=== PATIENT | female | born 1975 | race Caucasian/White ===

== ENCOUNTER 2023-02-10 08:33 | Outpatient (CLI) | payer OTHER, SELFPAY ==
--- NOTE | 2023-02-10 08:47 | XRR_ITS ---
PROCEDURE INFORMATION: Exam: XR Right Hip Exam date and time: 02/10/2023 8:57 AM Age: 47 years old Clinical indication: Hip pain; Right hip; Additional info: M25.551 - pain in right hip TECHNIQUE: Imaging protocol: Radiologic exam of the right hip. Views: 1 view hip with pelvis when performed. COMPARISON: No relevant prior studies available. FINDINGS: Bones/joints: Unremarkable. No acute fracture. Soft tissues: Unremarkable. XR/XR hip RT 2-3V wo/w pel* [id number] IMPRESSION: No significant abnormality.
== END 2023-02-10 08:34 | disposition home or self-care (01) ==
LOC: RAD 08:37
PROVIDERS: PCP Nurse Practitioner Family; Visit Provider Nurse Practitioner Family
DX: M25.551 Pain in right hip (principal)
CPT/HCPCS: 73502

== ENCOUNTER → 2023-06-05 10:21 | Outpatient (BNVA) | payer OTHER, SELFPAY | PROVIDERS: PCP Nurse Practitioner Family; Visit Provider Nurse Practitioner Family | DX: R53.83 Other fatigue (principal); N95.1 Menopausal and female climacteric states; F41.9 Anxiety disorder, unspecified | CPT/HCPCS: 80053; 82672; 83550; 84144; 84403; 84439; 84443; 84481; 85025 ==

== ENCOUNTER 2024-03-10 11:36 | Outpatient (CLI) | payer BC, SELFPAY ==
[2024-03-10 12:26] LABS: Ferritin 47 ng/mL (15-150); Iron 70 ug/dL (37-145); Percent Saturation 25.2 % (20-50); Total Iron Binding Capacity 277 mcg/dl; Transferrin 258 mg/dL (200-360); Unsaturated Iron Binding 207 ug/dL (112-347)
== END 2024-03-10 11:37 | disposition home or self-care (01) ==
LOC: LAB 11:37
PROVIDERS: PCP Nurse Practitioner Family; Visit Provider Dermatology
DX: L30.9 Dermatitis, unspecified (principal)
CPT/HCPCS: 36415; 82728; 83540; 83550; 84466

== ENCOUNTER → 2024-10-10 07:38 | Outpatient (BNVA) | payer BC, SELFPAY | PROVIDERS: PCP Nurse Practitioner Family; Visit Provider Nurse Practitioner Family | DX: N92.1 Excessive and frequent menstruation with irregular cycle (principal); R53.83 Other fatigue | CPT/HCPCS: 80053; 80061; 82672; 84144; 84403; 84439; 84443; 85025; 87070; 87205; 88175 ==

== ENCOUNTER 2024-11-11 09:58 | Outpatient (CLI) | payer BC, SELFPAY ==
--- NOTE | 2024-11-11 10:00 | MM_ITS ---
WS: [id number] BILATERAL SCREENING DIGITAL TOMOSYNTHESIS MAMMOGRAM WITH CAD HISTORY: Z12.39 - Encounter for other screening for malignant neop... COMPARISON: None available. Bilateral CC and MLO views with tomosynthesis and synthetic mammography submitted. Computer aided detection analyzed. Breast composition: The breasts are heterogeneously dense, which may obscure small masses. No suspicious masses, microcalcifications or architectural distortion. Benign calcification central LEFT breast. MM/MM scr BI tomosynthesis [id number] IMPRESSION: BI-RADS: 2 - Benign FOLLOW UP: 1 Year Follow-up
--- NOTE | 2024-11-11 10:45 | US_ITS ---
WS: [id number] US pelvic complete* [id number], transabdominal and transvaginal imaging. HISTORY: N92.1 - Excessive and frequent menstruation with irregular menses. COMPARISON: None available. Uterus: 11.2 cm x 6.5 cm x 5.6 cm. Uterus is enlarged and anteverted. Heterogeneous appearance to the uterus. Along the anterior myometrium there are changes consistent with a fibroid measuring 2.2 x 2.7 x 1.3 cm. There is a very large heterogeneous mass with variable echogenicity, shadowing and necrosis. This is a large mass inseparable from the uterus and extending to the RIGHT. There is increased vascularity. This is a large lobulated mass measuring at least 9.3 x 6.5 x 6.8 cm. This is inseparable from the uterus and may be an exophytic pedunculated fibroid. Endometrium: 1.1 cm. Mildly enlarged endometrium. In the central endometrial canal is a hyperechoic nodule which is probably a polyp. Mass extends over a length of 2.1 x 0.8 cm. In the more proximal endometrium there is a small amount of fluid. Neither ovary is identified. No free fluid in the cul-de-sac. US/US pelvic complete* [id number] IMPRESSION: 1. Large heterogeneous mass with necrosis and variable echogenicity and increa sed vascularity. Mass measures 9.3 x 6.5 x 6.8 cm and is inseparable from the u terus and extends into the RIGHT adnexa. Favor this is probably a large peduncu lated fibroid. Without visualizing the RIGHT ovary cannot exclude ovarian mass although this is felt less likely. There is an additional smaller fibroid in th e anterior myometrium. 2. Neither ovary identified. 3. Endometrial mass measuring 2.1 x 0.8 cm is most typical for a polyp. Recommendation: Follow-up with [facility] for evaluation of the endometrial polyp in t he large pelvic mass.
== END 2024-11-11 09:59 | disposition home or self-care (01) ==
LOC: RAD 09:59
PROVIDERS: PCP Nurse Practitioner Family; Visit Provider Nurse Practitioner Family
DX: Z12.31 Encounter for screening mammogram for malignant neoplasm of breast (principal); N92.1 Excessive and frequent menstruation with irregular cycle; R92.333 Mammographic heterogeneous density, bilateral breasts; R92.1 Mammographic calcification found on diagnostic imaging of breast; R19.00 Intra-abdominal and pelvic swelling, mass and lump, unspecified site; D25.9 Leiomyoma of uterus, unspecified; R93.89 Abnormal findings on diagnostic imaging of other specified body structures; N85.2 Hypertrophy of uterus
CPT/HCPCS: 76856; 77063; 77067; 80053; 80061; 82672; 84144; 84403; 84439; 84443; 85025; 87070; 87205; 88175